=== PATIENT | male | born 2000 | race Caucasian/White ===

== ENCOUNTER 2023-07-04 02:12 | Emergency (ER) | payer OTHER ==
[~2023-07-04] VITALS: Ht 180.3 cm; Wt 79.5 kg
[2023-07-04 02:20] VITALS: BP 125/77; PULSE 87; RESP 16; TEMP 98.5
[2023-07-04] MEDS ORDERED: CEPH-558 PO (03:10)
== END 2023-07-04 03:48 | disposition home or self-care (01) ==
LOC: EMS 02:12 → EDBD 02:12 → EMS 03:48
DX: S30.812A Abrasion of penis, initial encounter (principal); X58.XXXA Exposure to other specified factors, initial encounter; Y93.89 Activity, other specified; Y92.89 Other specified places as the place of occurrence of the external cause; Y99.8 Other external cause status
CPT/HCPCS: 99283; Z7502